=== PATIENT | male | born 1980 | race African-American/Black ===

== ENCOUNTER 2019-05-25 20:19 | Emergency (ER) | payer OTHER ==
[~2019-05-25] VITALS: Ht 175.3 cm; Wt 90.7 kg
[2019-05-25 21:36] VITALS: BP 178/98
== END 2019-05-25 21:36 | disposition home or self-care (01) ==
LOC: M.ERS 20:19
DX: K42.9 Umbilical hernia without obstruction or gangrene (principal)

== ENCOUNTER 2019-11-12 12:03 | Emergency (ER) | payer OTHER ==
[~2019-11-12] VITALS: Ht 175.3 cm; Wt 83.9 kg
[2019-11-12] MEDS ORDERED: NORCO 5-325 TA1 EAC2 PO (13:01)
[2019-11-12 13:13] VITALS: BP 124/81
== END 2019-11-12 13:14 | disposition home or self-care (01) ==
LOC: M.ERS 12:03
DX: S83.8X2A Sprain of other specified parts of left knee, initial encounter (principal); W22.8XXA Striking against or struck by other objects, initial encounter; Y93.89 Activity, other specified; Y92.89 Other specified places as the place of occurrence of the external cause; Y99.8 Other external cause status

== ENCOUNTER 2021-03-12 23:17 | Emergency (ER) | payer OTHER ==
[~2021-03-12] VITALS: Ht 175.3 cm; Wt 83.9 kg
[~2021-03-12 23:17] MED LIST: NORCO 5-325 TA1 EAC2 PO
[2021-03-12] MEDS ORDERED: FLEXERIL PO (23:46)
[2021-03-12 23:51] VITALS: BP 194/107
== END 2021-03-12 23:52 | disposition home or self-care (01) ==
LOC: M.ERS 23:17
DX: S46.002A Unspecified injury of muscle(s) and tendon(s) of the rotator cuff of left shoulder, initial encounter (principal); Z98.890 Other specified postprocedural states; X50.1XXA Overexertion from prolonged static or awkward postures, initial encounter; Y93.B9 Activity, other involving muscle strengthening exercises; Y92.89 Other specified places as the place of occurrence of the external cause; Y99.8 Other external cause status